=== PATIENT | female | born 1960 | race Caucasian/White ===

== ENCOUNTER 2020-03-04 16:04 | Emergency (ER) | payer MEDICARE ==
[~2020-03-04] VITALS: Ht 165.1 cm; Wt 61.4 kg
[~2020-03-04 16:04] MED LIST: DILAUDID8 MG PO; ELIQUIS2.5 MG PO; HYDROCODON-ACE1 EAC7 PO; NEURONTIN 300300 MG PO; SOMA350 MG PO
[2020-03-04 16:25] VITALS: BP 141/86; Ht 165.1 cm; Wt 61.4 kg
[2020-03-04] MEDS ORDERED: LEXAPRO10 MG (16:27)
[2020-03-04] MEDS ORDERED: TOPAMAX50 MG (16:28)
== END 2020-03-04 17:21 | disposition left against medical advice (07) ==
LOC: D.ER 16:04
DX: R51.9 Headache, unspecified (principal)